=== PATIENT | female | born 1990 | race Caucasian/White ===

== ENCOUNTER → 2016-04-14 | Outpatient (CLI) | payer OTHER ==
--- NOTE | 2016-04-15 06:15 | PAP/PSG TECHNICIAN REPORT ---
[facility] Guidance Secretary Polysomnogram Report Study name: None Report date: 04/15/2016 Study date: 04/14/2016 Referring Physician: Millie Everett M.D. Name: DANK CRIS Александр Interpreting Physician: Chinyere Everett M.D. Date of : 1990 Guidance Secretary: Lucina Anand RPSKINGS. Sex: Female Age: 25 StudyType: PSG Weight: 276 lbs Height: 25 years, Height 5' 2" Neck Circum:19inches BMI: 50.48 Medications: Welbutrin SR 100mg, Meloxicam 15mg, Depro-Provera 150mg/ml, Nystatin [id number]/gm, Atrovent 0.06%soln, Miralax, Loratadine 10mg, Selenium Patient History Study started on room air with ETCO2 monitoring in room #6. 25 yr old female here tonight for a possible split psg. She anticipates having gastric bypass surgery. She has unrefreshing sleep, snores and has some daytime sleepiness. Her ESS=8/24. Neck circ=19inches. Parameters Monitored NPSG: E1-M2, E2-M1, Fp1-M2, Fp2-M1, F3-M2, F4-M2, F4-M1, C3-M2, C4-M2, C4-M1, O1-M2, O2-M2, O2-M1, T3-M2, T4-M1, P3-M2, P4-M1, CHIN1, CHIN2, HR, EKG, Legs, PFLOW, SNOR, FLOW, CFLOW, Tidal Volume, THOR, ABDO, SpO2, PLTH, CPRESS, ETCO2 Wave, ETCO2, pH Sleep Architecture Sleep Stages Time at Lights Off 10:17:59 PM STAGES Time (min.) TST (%) Time at Lights On 5:28:29 AM Wake 29.0 -- Total Recording Time (TRT) 426.50 min. N1 13.0 3 Total Sleep Period (TSP) 417.0 min. N2 234.0 59 Total Sleep Time (TST) 397.5min. N3 90.0 23 Awake Time 29.0 min. REM 60.5 15 Wake after Sleep Onset 23.5 min. Sleep Efficiency (SE) 93 % Sleep Onset Latency (EVELYN) 9.5 min. Number of Stage 1 Shifts None Awakenings 11 Stage Changes 59 Number of REM periods 7 REM 60.5 15 REM Latency 168.0 min. NREM 337.0 85 Body Position Analysis Supine Right Left Side Prone Vertical Total Sleep Time (min.) 5.2 138.0 45.0 183.00 227.0 0.0 Total Sleep Time (%) 0% 35% 11% 46 54% N/A% Total Sleep Time REM (min.) 0.0 22.0 0.0 None 38.5 0.0 Total Sleep Time NREM (min.) 0.0 116.0 45.0 None 176.0 0.0 Intermittent Wake (min.) 5.2 7.4 3.8 None 12.5 0.0 Total Sleep Period (%) 0% None None None None None Arousals Myoclonus (PLM) * Events Count Index Events Count Index Spontaneous 17 3 Events Awake (PLMW) 31 64.1 Respiratory 1 0.2 Events Asleep w/ Arousal (PLMA) 5 0.8 PLM 5 1 Events Asleep w/o Arousal (PLMS) 30 4.5 Snoring 6 1 Total Asleep 35 5.3 Total 29 4 Total 66 9 Respiratory Analysis * CA OA MA CH H RERA Total Count 0 1 0 0 6 0 7 Index 0.0 0.2 0.0 0 0.9 0 1.1 Mean Duration 0.0 31.9 0.0 0.00 21.6 0.0 23.0 Longest Duration 0.0 31.9 0.0 0.00 0.0 0.0 33.1 Respiratory Event Summary Total Supine ~Supine Right Left Prone REM NREM Apneas Count 1 N/A 1 0 0 1 0 1 Index 0.2 N/A 0 0.0 0.0 0 0 0 Hypopneas (4% Desat) Count 6 N/A 6 2 0 4 6 0 Index 0.9 N/A 1 0.9 0.0 1.1 6.0 0.0 Apneas & All Hypopneas Count 7 N/A 7 2 0 5 6 1 Index 1.1 N/A 1 1 0 1 6.0 0.2 Respiratory Events (Documentation Liaison+All Hyp+RERA) Count 7 N/A 7 2 0 5 6 1 Index 1.1 N/A 1 0.9 0.0 1.4 6.0 0.2 Respiratory Related Arousal Count 1 N/A 1 0 0 1 1 0 Index 0.2 N/A 0 0 0 0 1 0 Snoring Analysis Supine Right Left Prone REM NREM Total Snore duration 2.0 min Snores count N/A 25 4 40 13 56 69 Snore mean duration 1.8 Sec Snores index N/A 11 5 11 12.9 10.0 10.4 TST with snoring (%) 0.5% SpO2 Analysis Total REM NREM Awake <50% 0.0 min. 0.0 min. 0.0 min. 0.0 min. 51 - 60% 0.0 min. 0.0 min. 0.0 min. 0.0 min. 61 - 70% 0.0 min. 0.0 min. 0.0 min. 0.0 min. 71 - 80% 0.0 min. 0.0 min. 0.0 min. 0.0 min. 81 - 90% 2.2 min. 1.9 min. 0.3 min. 0.0 min. 91 - 100% 420.7 min. 58.6 min. 336.3 min. 25.8 min. Average 94 94 94 95 Minimum SpO2 86 86 89 91 Desaturation Event Index 3.7 21.8 0.5 2.1 # Desat. Events below 89% 2 2 N/A N/A Time(%) with Saturation below 89% 0.0 0.0 0.0 0.0 Time(min.) with Saturation below 89% 0.1 0.1 0.0 0.0 Heart Rate Analysis End Tidal CO2 Analysis Min (bpm) Max (bpm) Average (bpm) TSP (mins) % of TSP Awake 73 119 92 Above 55 mmHg 0.0 0.0 NREM 61 111 84 50-55 mmHg 0.0 0.0 REM 71 102 84 45-50 mmHg 0.0 0.0 Overall 61 111 84 40-45 mmHg 186.9 47.0 35-40 mmHg 185.7 46.7 30-35 mmHg 8.9 2.2 Average ETCO2 0.0 Supplemental O2 Values Minimum O2 level: None Value Start Time End Time Guidance Secretary Comments Ms. Ramírez slept in the right, left and prone positions. No cardiac arrhythmia or PLM's noted. No bruxism noted. Snoring was noted and scored as a 1 on a scale of 1 through 5. (0=no snoring, 5=snoring loud enough to be heard through a closed door or down the [address]) She did not use the restroom during the night. She stated that she slept about the same as usual. The final report will be interpreted and signed by a sleep physician. The completed physician report will then be placed in the patient medical record. Therapy (cm H2O) 0 TIB (min.) 426.5 TST (min.) 397.5 Sleep Onset (min.) 9.5 REM Onset From Sleep (min.) 168.0 Sleep Efficiency % 93 Wakefulness (%) 7 Wakefulness (min.) 29.0 NREM 1 (%) 3 NREM 1 (min.) 13.0 NREM 2 (%) 59 NREM 2 (min.) 234.0 NREM 3 (%) 23 NREM 3 (min.) 90.0 REM (%) 15 REM (min.) 60.5 # Arousals 29 Arousal Index 4 # Snore 69 Snore Index 10.4 AHI 1.1 AHI Supine N/A AHI Non-Supine 1 NREM AHI 0.2 REM AHI 6.0 RDI 1.1 # Obstructive Apnea 1 # Central Apnea 0 # Mixed Apnea 0 # Hypopneas 6 RERAs 0 Total Respiratory Events 9 Time Below SpO2 89% (min.) 0.1 Mean NREM SpO2 (%) 94 Mean REM SpO2 (%) 94 Mean Sleep SpO2 (%) 94 Min NREM SpO2 (%) 89 Min REM SpO2 (%) 86 Position Supine (min.) 5.2 Position Non-supine (min.) 397.5 LM Index Sleep 5.3 LM Index NREM 5.9 LM Index REM 2.0 Mean Heart Rate (bpm) 84 Min Heart Rate (bpm) 61
--- NOTE | 2016-04-18 23:48 | POLYSOMNOGRAPH REPORT ---
REFERRING PERSON: Dr. Roland Everett. APARTMENT GROUNDSKEEPER: Lucina Anand. Ms. Ramírez is a 25-year-old female who is sent to the sleep lab for a baseline sleep study. She complains of excessive daytime sleepiness, snoring, and unrefreshing sleep. Her [place] sleepiness scale score on the evening of this study is 8. BMI is 50.48. Following the technical and digital specifications of the [place] [employer] (AASM) a standard diagnostic polysomnogram was performed monitoring EEG, EOG, EMG (chin and leg deviations), oxygen saturation, body position, digital video, respiratory effort and airflow. The sleep Stage and event scoring was based on the AASM Manual for the Scoring of Sleep and Associated Events 2007 edition. Apneas are defined as a drop in the peak thermal sensor excursion by >90% of baseline for at least 10 seconds. Hypopneas were scored using the 4% oxygen desaturation rule (4A-[employer]) and a decrease in the nasal pressure excursions by >30% of baseline for at least 10 seconds. Respiratory effort-related arousal (RERA's) is defined as a sequence of breaths lasting at least 10 seconds characterized by increasing respiratory effort or flattening of the nasal pressure waveform leading to an arousal from sleep when the sequence of breaths does not meet criteria for an apnea or hypopnea. Apnea Hypopnea index (AHI) is defined as the number of apneas and hypopneas occurring in an hour of sleep. Respiratory disturbance index (RDI) is defined as the number of apneas, hypopneas, and RERA's occurring in an hour of sleep. Ms. Ramírez's total sleep period time was 417 minutes with total sleep time of 397.5 minutes. Sleep efficiency was 93%. Latency to sleep onset was 9.5 minutes with wake after sleep onset of 23.5 minutes. Total non-REM sleep time was 337 minutes. She spent 3% of that time in N1 sleep, 59% in N2 sleep and 23% in N3 sleep. REM latency was 168 minutes. Total REM sleep time was 60.5 minutes or 15% of total sleep time. There were 29 cortical arousals from sleep. 17 of these arousals were spontaneous, 1 was due to respiratory events, 5 due to periodic limb movements of sleep and 6 were due to snoring. There were 35 periodic limb movements noted on this test. Limb movement index was 5.3. Limb movement with arousal index was 0.8. There were no central, 1 obstructive and no mixed apnea on this test. There were 6 hypopneas. Apnea-hypopnea index was 1.1. There were 69 snoring events recorded. Total sleep time with snoring was 0.5%. Mean saturation was 94 with desaturations to 86, only transiently however. Saturations were less than 89 for 0.1 minute of sleep time. There was no cardiac ectopy. Heart rates during sleep ranged from a low of 61 beats per minute to a high of 111 beats per minute. End-tidal CO2 was recorded on this test. End-tidal CO2s were between 40 and 45 mmHg for 47% of total sleep period time and between 35 and 40 mmHg for 46.7%. End-tidal CO2s were between 30 and 35 mmHg for 2.2% of total sleep period time. IMPRESSION AND PLAN: A 25-year-old female without evidence of sleep-disordered breathing, nocturnal hypoxemia, bruxism, parasomnia or clinically significant periodic limb movements of sleep on this test.
== END | disposition home or self-care (01) ==
LOC: C.NEUR 20:00
PROVIDERS: ATTEND Family Medicine
DX: R40.0 Somnolence (principal); R06.83 Snoring; E66.01 Morbid (severe) obesity due to excess calories